=== PATIENT | female | born 1935 ===

== ENCOUNTER 2017-04-19 22:52 | Inpatient (IN) | payer MEDICARE ==
[2017-04-19 22:52] VITALS: BMI 25.6
--- NOTE | 2017-04-20 01:34 | C.PDOC ---
History Of Present Illness Patient presents to the ER after having a near syncopal episode [employer]. Patient states she was watching TV when she got dizzy, tried to get up, and felt like she almost passed out. Patient states she laid on the ground, did not fall, and remember the event. Patient notes she did not take her hypertension medications today. She is also complaining of some mild chest discomfort. Denies fever, chills, nausea, or vomiting. Time Seen by Provider: 04/20/17 01:34 Chief Complaint (Nursing): High Blood Pressure History Per: Patient History/Exam Limitations: no limitations Onset/Duration Of Symptoms: Hrs Current Symptoms Are (Timing): Still Present Associated Symptoms: Chest Pain, Dizziness. denies: Dyspnea, Blurred Vision, Focal Weakness, Headache Quality Of Symptoms: Asymptomatic Severity: Moderate Pain Scale Rating Of: 4 Exacerbating Factor(s): Pos: Recently Missed Doses Of Medication Recent travel outside of the [place]: No Additional History Per: Family Past Medical History Reviewed: Historical Data, Nursing Documentation, Vital Signs Vital Signs: Last Vital Signs Temp 97.8 F 04/19/17 22:56 Pulse 58 L 04/20/17 00:22 Resp 18 04/20/17 00:22 BP 184/78 H 04/20/17 00:22 Pulse Ox 97 04/20/17 01:54 - Medical History PMH: Anemia, Arthritis, HTN, Hypercholesterolemia Surgical History: CABG, Coronary Stent (X2) Family History: States: No Known Family Hx - Social History Hx Tobacco Use: No Hx Alcohol Use: No Hx Substance Use: No - Immunization History Hx Tetanus Toxoid Vaccination: No Hx Influenza Vaccination: Yes Hx Pneumococcal Vaccination: No Review Of Systems Constitutional: Negative for: Fever, Chills Cardiovascular: Positive for: Chest Pain (discomfort). Negative for: Palpitations Respiratory: Negative for: Cough, Shortness of Breath Gastrointestinal: Negative for: Nausea, Vomiting Genitourinary: Negative for: Dysuria Musculoskeletal: Negative for: Neck Pain Skin: Negative for: Rash Neurological: Positive for: Dizziness, Other (Near syncope) Psych: Negative for: Anxiety Physical Exam - Physical Exam Appears: Non-toxic Skin: Warm, Dry Head: Normacephalic Eye(s): bilateral: Normal Inspection Oral Mucosa: Moist Throat: No Erythema Neck: Supple Chest: Symmetrical, No Tenderness Cardiovascular: Rhythm Regular Respiratory: No Rales, Rhonchi (Scattered), No Wheezing Gastrointestinal/Abdominal: Soft, No Tenderness Back: Normal Inspection Extremity: No Pedal Edema Extremity: Bilateral: Atraumatic, Normal Color And Temperature Pulses: Left Dorsalis Pedis: Normal, Right Dorsalis Pedis: Normal Neurological/Psych: Oriented x3 Gait: Steady ED Course And Treatment - Laboratory Results Result Diagrams: 04/20/17 02:25 04/20/17 02:25 ECG: Interpreted By Me, Viewed By Me ECG Rhythm: Sinus Rhythm (66), Nonspecific Changes O2 Sat by Pulse Oximetry: 97 (room air) Pulse Ox Interpretation: Normal - Radiology CXR: Interpreted by Me, Viewed By Me Progress Note: CT head, EKG, blood work, CXR, and urinalysis ordered. Aspirin administered. Disposition Discussed With Dr.: Gaurang Lara Comment: accetped the pt on his service and took over the care at 3AM Doctor Will See Patient In The: Hospital Counseled Patient/Family Regarding: Studies Performed, Diagnosis - Disposition Referrals: Gaurang Lara MD [Primary Care Provider] - Disposition: HOSPITALIZED Disposition Time: 01:34 Condition: FAIR Forms: Anapsis (Upper Sorbian) - POA Present On Arrival: None - Clinical Impression Clinical Impression: Hypertension, Chest pain - Scribe Statement The provider has reviewed the documentation as recorded by the Scribfabricio Muir All medical record entries made by the Scribe were at my direction and personally dictated by me. I have reviewed the chart and agree that the record accurately reflects my personal performance of the history, physical exam, medical decision making, and the department course for this patient. I have also personally directed, reviewed, and agree with the discharge instructions and disposition. Decision To Admit - Pt Status Changed To: Hospital Disposition Of: Inpatient - Admit Certification Admit to Inpatient:: After my assessment, the patient will require hospitalization for at least two midnights. This is because of the severity of symptoms shown, intensity of services needed, and/or the medical risk in this patient being treated as an outpatient. - InPatient: Physician Admission Certification: I certify that this patient requires 2 or more midnights of care for the following reason:: After my assessment, the patient will require hospitalization for at least two midnights. This is because of the severity of symptoms shown, intensity of services needed, and/or the medical risk in this patient being treated as an outpatient. - . Bed Request Type: Telemetry Admitting Physician: Gaurang Lara Patient Diagnosis: Hypertension, Chest pain
[2017-04-20] MEDS ORDERED: Aspirin 325 mg EC Tablets PO STA (01:41)
[2017-04-20] MEDS ORDERED: Aspirin 325 mg EC Tablets PO ONE (02:21)
[2017-04-20 02:35] LABS: BASO % 0.5 % (0.0-2.0); EOS # 0.2 K/uL (0.0-0.7); EOS % 3.3 % (0.0-4.0); HEMOGLOBIN 10.2 g/dL (11.0-16.0); LYMPH # 1.1 K/uL (1.0-4.3); LYMPH % 19.7 % (20.0-40.0); MEAN CELL VOLUME 85.9 fL (81.0-99.0); MEAN CORPUSCULAR HEMOGLOBIN 28.5 pg (27.0-31.0); MEAN CORPUSCULAR HGB CONC 33.1 g/dL (33.0-37.0); MEAN PLATELET VOLUME 9.5 fL (7.2-11.7); MONO # 0.4 K/uL (0.0-0.8); MONO % 7.6 % (0.0-10.0); NEUT # 3.7 K/uL (1.8-7.0); NEUT % 68.9 % (50.0-75.0); RBC 3.59 Mil/uL (3.80-5.20); RED CELL DISTRIBUTION WIDTH 15.8 % (11.5-14.5); WHITE BLOOD COUNT 5.4 K/uL (4.8-10.8)
--- NOTE | 2017-04-20 02:35 | CT ---
EXAM: CT Head Without Intravenous Contrast CLINICAL HISTORY: 81 years old, female; Pain; Headache; Patient HX: 5-2-14 images sent already; Additional info: Near syncope. Dizziness TECHNIQUE: Axial computed tomography images of the head/brain without intravenous contrast. All CT scans at this facility use one or more dose reduction techniques, viz.: automated exposure control; ma/kV adjustment per patient size (including targeted exams where dose is matched to indication; i.e. head); or iterative reconstruction technique. Coronal and sagittal reformatted images were created and reviewed. COMPARISON: CT - HEAD W/O CONTRAST 2013-07-07 12:04 FINDINGS: Brain: Mild atrophy. No intracranial hemorrhage. No mass. Minimal decreased attenuation within periventricular white matter. No definite edema. Ventricles: No hydrocephalus. Bones/joints: No acute fracture. Soft tissues: Unremarkable. Vasculature: Atherosclerotic disease of intracranial arteries. Sinuses: Mild mucosal thickening/air fluid level of RIGHT sphenoid sinus. Scattered minimal mucosal thickening of ethmoid, LEFT sphenoid sinuses. Mastoid air cells: No mastoid effusion. Orbits: Unremarkable as visualized. IMPRESSION: 1. Nonspecific white matter changes. Acute infarction may be CT occult within first 24 hours. If a focal deficit persists, consider followup CT or MRI for further evaluation. 2. Sinus disease. 3. Incidental/non-acute findings are described above.
[2017-04-20 02:45] LABS: PROTHROMBIN TIME 11.1 SECONDS (9.7-12.2)
[2017-04-20 02:48] LABS: CALCIUM 8.5 mg/dl (8.6-10.4); GFR AFRICAN-AMERICAN > 60; GFR NON-AFRICAN AMERICAN > 60
[2017-04-20 03:00] LABS: B-TYPE NATRIURETIC PEPTIDE 116 pg/mL (0-900)
[2017-04-20 03:07] LABS: SQUAMOUS EPITHIAL 1 /hpf (0-5); URINE BACTERIA MOD (<OCC); URINE BILIRUBIN NEGATIVE (NEGATIVE); URINE BLOOD NEGATIVE (NEGATIVE); URINE CLARITY Clear (Clear); URINE COLOR Yellow (YELLOW); URINE GLUCOSE (UA) NORMAL (Normal); URINE LEUKOCYTE ESTERASE TRACE Leu/uL (Negative); URINE NITRATE NEGATIVE (NEGATIVE); URINE PROTEIN NEGATIVE (NEGATIVE); URINE UROBILINOGEN NORMAL mg/dL (0.2-1.0)
[2017-04-20 03:09] LABS: ALB/GLOB RATIO 1.2 (1.0-2.1); ALBUMIN 3.9 g/dL (3.5-5.0); ALT/SGPT 17 U/L (9-52); AST/SGOT 39 U/L (14-36); BLOOD UREA NITROGEN 13 mg/dL (7-17)
[2017-04-20] MEDS ORDERED: Home Med 1 UNIT (Alendronate [Fosamax] 70 MG) PO SCH ×2 (05:00→08:15)
--- NOTE | 2017-04-20 08:28 | RAD ---
PROCEDURE: CHEST RADIOGRAPH, 1 VIEW HISTORY: chest pain COMPARISON: 07/07/2013 FINDINGS: LUNGS: Clear. PLEURA: No pneumothorax or pleural fluid seen. CARDIOVASCULAR: Minimal cardiomegaly. No pulmonary venous congestion. Aortic atherosclerotic vascular disease OSSEOUS STRUCTURES: Thoracic spondylosis. Bilateral shoulder arthrosis VISUALIZED UPPER ABDOMEN: Left subdiaphragmatic 2 - gaseous crescents: Within stomach and large bowel - favored ; no history provided to suggest loculated free air here OTHER FINDINGS: None. IMPRESSION: No acute cardiopulmonary pathology. Cardiomegaly as before Left subdiaphragmatic 2 - gaseous crescents: Within stomach and large bowel - favored ; no history provided to suggest loculated free air here. Please correlate
[2017-04-20] MEDS ORDERED: Pantoprazole 40 mg EC Tab PO SCH (10:00)
[2017-04-20] MEDS: Enoxaparin 40 mg Syringe SC SCH (10:04)
[2017-04-20 11:16] LABS: CK-MB 0.44 ng/mL (0.0-3.38)
--- NOTE | 2017-04-20 11:36 | CP.PCM.PN ---
Subjective - Date & Time of Evaluation Date of Evaluation: 04/20/17 Time of Evaluation: 11:35 - Subjective Subjective: PT SEEN IN ED BED [address] Dayan VERMA DURING ROUNDS. PT IS ADMITTED AND CURRENTLY WAITING FOR A BED ON TELE FLOOR. DAUGHTER AT BEDSIDE. EVAL'D BY DR. VERMA. PLAN: WILL CONTINUE TELE MX. DR. MURRAY TO SEE PT FOR CARDIOLOGY. DR. Narinder GROVER CONSULTED FOR NEURO--REPAIR SPECIALIST NOTIFIED DR. GROVER. DVT PROPHYLAXIS ORDERED. PHY THERAPY EVAL FOR GAIT. CM TO EVAL THE PT FOR D/C PLANNING FURTHER ORDERS PER CONSULTS AND ATTENDING. NO FURTHER ORDERS. Objective - Vital Signs/Intake and Output Vital Signs (last 24 hours): Temp Pulse Resp BP Pulse Ox 97.8 F 61 18 180/86 H 99 04/19/17 22:56 04/20/17 10:00 04/20/17 10:00 04/20/17 10:03 04/20/17 10:00 - Medications Medications: Current Medications Aspirin (Aspirin Chewable) 81 mg PO DAILY [facility] Last Admin: 04/20/17 10:04 Dose: 81 mg Clopidogrel Bisulfate (Plavix) 75 mg PO DAILY [facility] Last Admin: 04/20/17 10:04 Dose: 75 mg Enalapril Maleate (Vasotec) 20 mg PO DAILY [facility] Last Admin: 04/20/17 10:03 Dose: 20 mg Enoxaparin Sodium (Lovenox) 40 mg SC DAILY [facility] Last Admin: 04/20/17 10:04 Dose: 40 mg Home Med (Alendronate [Fosamax]) 70 mg PO Q7D [facility] Pantoprazole Sodium (Protonix Ec Tab) 40 mg PO DAILY [facility] Last Admin: 04/20/17 10:04 Dose: 40 mg Rosuvastatin Calcium (Crestor) 5 mg PO HS [facility] - Labs Labs: 04/20/17 02:25 04/20/17 02:25 PT 11.1 SECONDS (9.7-12.2) 04/20/17 02:25 INR 1.0 04/20/17 02:25 APTT 28 SECONDS (21-34) 04/20/17 02:25
[2017-04-20 15:54] VITALS: RESP 20
--- NOTE | 2017-04-20 17:06 | CP.PCM.HP ---
Past Patient History - Infectious Disease Hx of Infectious Diseases: None - Past Medical History & Family History Past Medical History?: Yes - Past Social History Smoking Status: Never Smoked - CARDIAC Hx Hypercholesterolemia: Yes Hx Hypertension: Yes - PULMONARY Hx Respiratory Disorders: No - NEUROLOGICAL Hx Paralysis: No - HEENT Hx Cataracts: Yes Other/Comment: hx of cataract surgery both eyes - RENAL Hx Chronic Kidney Disease: No - ENDOCRINE/METABOLIC Hx Endocrine Disorders: No - HEMATOLOGICAL/ONCOLOGICAL Hx Anemia: Yes - INTEGUMENTARY Hx Dermatological Problems: No - MUSCULOSKELETAL/RHEUMATOLOGICAL Hx Arthritis: Yes - GASTROINTESTINAL Hx Gastrointestinal Disorders: No - GENITOURINARY/GYNECOLOGICAL Hx Genitourinary Disorders: No - PSYCHIATRIC Hx Substance Use: No - SURGICAL HISTORY Hx Coronary Artery Bypass Graft: Yes Hx Coronary Stent: Yes (X2) - ANESTHESIA Hx Anesthesia: Yes Hx Anesthesia Reactions: No Hx Malignant Hyperthermia: No Meds Allergies/Adverse Reactions: Allergies Allergy/AdvReac Type Severity Reaction Status Date / Time No Known Allergies Allergy Verified 04/19/17 23:01 Physical Exam - Constitutional Appears: Well - Head Exam Head Exam: ATRAUMATIC, NORMAL INSPECTION, NORMOCEPHALIC - Eye Exam Eye Exam: EOMI, Normal appearance, PERRL Pupil Exam: NORMAL ACCOMODATION, PERRL - ENT Exam ENT Exam: Mucous Membranes Moist, Normal Exam - Neck Exam Neck exam: Positive for: Normal Inspection - Respiratory Exam Respiratory Exam: Decreased Breath Sounds - Cardiovascular Exam Cardiovascular Exam: REGULAR RHYTHM, +S1, +S2 - GI/Abdominal Exam GI & Abdominal Exam: Diminished Bowel Sounds, Soft - Rectal Exam Rectal Exam: Deferred Results - Vital Signs Recent Vital Signs: Last Vital Signs Temp 97.9 F 04/20/17 15:53 Pulse 57 L 04/20/17 15:53 Resp 20 04/20/17 15:53 BP 160/70 H 04/20/17 15:53 Pulse Ox 99 04/20/17 15:53 - Labs Result Diagrams: 04/20/17 02:25 04/20/17 02:25 Labs: Laboratory Results - last 24 hr 04/20/17 04/20/17 04/20/17 02:25 02:25 02:25 WBC 5.4 RBC 3.59 L Hgb 10.2 L Hct 30.8 L MCV 85.9 D MCH 28.5 MCHC 33.1 RDW 15.8 H Plt Count 160 MPV 9.5 Neut % (Auto) 68.9 Lymph % (Auto) 19.7 L [place] % (Auto) 7.6 Eos % (Auto) 3.3 Baso % (Auto) 0.5 Neut # (Auto) 3.7 Lymph # (Auto) 1.1 [place] # (Auto) 0.4 Eos # (Auto) 0.2 Baso # (Auto) 0.0 PT 11.1 INR 1.0 APTT 28 Sodium 140 Potassium 4.3 Chloride 106 Carbon Dioxide 24 Anion Gap 14 BUN 13 Creatinine 0.8 Est GFR ( Amer) > 60 Est GFR (Non-Af Amer) > 60 Random Glucose 108 H Calcium 8.5 L Total Bilirubin 1.1 AST 39 H ALT 17 Alkaline Phosphatase 52 Total Creatine Kinase CK-MB (Mass) Troponin I < 0.0120 NT-Pro-B Natriuret Pep 116 Total Protein 7.3 Albumin 3.9 Globulin 3.4 Albumin/Globulin Ratio 1.2 Urine Color Urine Clarity Urine pH Ur Specific [place] Urine Protein Urine Glucose (UA) Urine Ketones Urine Blood Urine Nitrate Urine Bilirubin Urine Urobilinogen Ur Leukocyte Esterase Urine WBC (Auto) Urine RBC (Auto) Ur Squamous Epith Cells Urine Bacteria 04/20/17 04/20/17 02:54 10:38 WBC RBC Hgb Hct MCV MCH MCHC RDW Plt Count MPV Neut % (Auto) Lymph % (Auto) [place] % (Auto) Eos % (Auto) Baso % (Auto) Neut # (Auto) Lymph # (Auto) [place] # (Auto) Eos # (Auto) Baso # (Auto) PT INR APTT Sodium Potassium Chloride Carbon Dioxide Anion Gap BUN Creatinine Est GFR ( Amer) Est GFR (Non-Af Amer) Random Glucose Calcium Total Bilirubin AST ALT Alkaline Phosphatase Total Creatine Kinase 43 CK-MB (Mass) 0.44 Troponin I < 0.0120 NT-Pro-B Natriuret Pep Total Protein Albumin Globulin Albumin/Globulin Ratio Urine Color Yellow Urine Clarity Clear Urine pH 7.0 Ur Specific [place] 1.005 Urine Protein Negative Urine Glucose (UA) Normal Urine Ketones Negative Urine Blood Negative Urine Nitrate Negative Urine Bilirubin Negative Urine Urobilinogen Normal Ur Leukocyte Esterase Trace Urine WBC (Auto) 3 Urine RBC (Auto) 2 Ur Squamous Epith Cells 1 Urine Bacteria Mod H
--- NOTE | 2017-04-20 17:21 | CP.PCM.CON ---
History of Present Illness - History of Present Illness History of Present Illness: I was asked to see patient by DR Dayan Lara. Patient is a 81 year old female with PMH HTN, who presents with chest pain. Symptoms are progressive cnetrally located. She has dyspnea on exertion. The patient has had previous coronary intervention. Review of Systems - Constitutional Constitutional: absent: As Per HPI, Anorexia, Chills, Daytime Sleepiness, Excessive Sweating, Fatigue, Fever, Frequent Falls, Headache, Increased Appetite , Lethargy, Malaise, Night Sweats, Snoring, Sleep Apnea, Weight Gain, Weight Loss, Weakness, Other - EENT Eyes: absent: As Per HPI, Blind Spots, Blurred Vision, Change in Vision, Decreased Night Vision, Diplopia, Discharge, Dry Eye, Exophthalmos, Floaters, Irritation, Itchy Eyes, Loss of Peripheral Vision, Pain, Photophobia, Requires Corrective Lenses, Sees Flashes, Spots in Vision, Tunnel Vision, Other Visual Disturbances, Loss of Vision, Other Ears: absent: As Per HPI, Decreased Hearing, Ear Discharge, Ear Pain, Tinnitus, Abnormal Hearing, Disequilibrium, Dizziness, Other Nose/Mouth/Throat: absent: As Per HPI, Epistaxis, Nasal Congestion, Nasal Discharge, Nasal Obstruction, Nasal Trauma, Nose Pain, Post Nasal Drip, Sinus Pain, Sinus Pressure, Bleeding Gums, Change in Voice, Dental Pain, Dry Mouth, Dysphagia, Halitosis, Hoarsness, Lip Swelling, Mouth Lesions, Mouth Pain, Odynophagia, Sore Throat, Throat Swelling, Tongue Swelling, Facial Pain, Neck Pain, Neck Mass, Other - Cardiovascular Cardiovascular: Chest Pain - Respiratory Respiratory: absent: As Per HPI, Cough, Dyspnea, Hemoptysis, Dyspnea on Exertion , Wheezing, Snoring, Stridor, Pain on Inspiration, Chest Congestion, Excessive Mucous Production, Change in Mucous Color, Pain with Coughing, Other - Gastrointestinal Gastrointestinal: absent: As Per HPI, Abdominal Pain, Belching, Bloating, Change in Bowel Habits, Change in Stool Character, Coffee Ground Emesis, Constipation, Cramping, Diarrhea, Dyspepsia, Dysphagia, Early Satiety, Excessive Flatus, Fecal Incontinence, Heartburn, Hematemesis, Hematochezia, Loose Stools, Melena, Nausea, Odynophagia, Temesmus, Vomiting, Other - Genitourinary Genitourinary: absent: As Per HPI, Change in Urinary Stream, Difficulty Urinating, Dysuria, Flank Pain, Hematuria, Pyuria, Nocturia, Urinary Incontinence, Urinary Frequency, Urinary Hesitance, Urinary Urgency, Voiding Freq/Small Amts, Freq UTI, Hx Renal/Bladder Calculi, Hx /Renal Surgery, Bladder Distension, Other - Musculoskeletal Musculoskeletal: absent: As Per HPI, Abnormal Gait, Arthralgias, Atrophy, Back Pain, Deformity, Joint Swelling, Limited Range of Motion, Loss of Height, Muscle Cramps, Muscle Weakness, Myalgias, Neck Pain, Numbness, Radiating Pain into Limb, Stiffness, Tingling, Other - Integumentary Integumentary: absent: As Per HPI, Acne, Alopecia, Bleeding Lesions, Change in Hair, Change in Nails, Change in Pigmentation, Changing Lesions, Dry Skin, Erythema, Furuncle, Hirsutism, Lesions, New Lesions, Non-Healing Lesions, Photosensitivity, Pruritus, Rash, Skin Pain, Skin Ulcer, Sores, Striae, Swelling , Unusual Bruising, Wounds, Jaundice, Other - Neurological Neurological: absent: As Per HPI, Abnormal Gait, Abnormal Hearing, Abnormal Movements, Abnormal Speech, Behavioral Changes, Burning Sensations, Confusion, Convulsions, Disequilibrium, Dizziness, Numbness, Focal Weakness, Frequent Falls , Headaches, Lack of Coordination, Loss of Vision, Memory Loss, Paresthesias, Radicular Pain, Restless Legs, Sensory Deficit, Syncope, Tingling, Tremor, Vertigo, Weakness, Other Visual Disturbances, Other - Psychiatric Psychiatric: absent: As Per HPI, Abnormal Sleep Pattern, Anhedonia, Anxiety, Auditory Hallucinations, Behavioral Changes, Change in Appetite, Change in Libido, Confusion, Depression, Difficulty Concentrating, Hallucinations, Homicidal Ideation, Hopelessness, Irritability, Memory Loss, Mood Swings, Panic Attacks, Paranoia, Suicidal Ideation, Visual Hallucinations, Tactile Hallucinations, Other - Endocrine Endocrine: absent: As Per HPI, Change in Body Appearance, Change in Libido, Cold Intolorance, Deepening of Voice, Excessive Sweating, Fatigue, Flushing, Heat Intolorance, Increase in Ring/Shoe/Hat Size, Palpitations, Polydipsia, Polyphagia, Polyuria, Other - Hematologic/Lymphatic Hematologic: absent: As Per HPI, Easy Bleeding, Easy Bruising, Lymphadenopathy, Other Past Patient History - Infectious Disease Hx of Infectious Diseases: None - Past Medical History & Family History Past Medical History?: Yes - Past Social History Smoking Status: Never Smoked - CARDIAC Hx Hypercholesterolemia: Yes Hx Hypertension: Yes - PULMONARY Hx Respiratory Disorders: No - NEUROLOGICAL Hx Paralysis: No - HEENT Hx Cataracts: Yes Other/Comment: hx of cataract surgery both eyes - RENAL Hx Chronic Kidney Disease: No - ENDOCRINE/METABOLIC Hx Endocrine Disorders: No - HEMATOLOGICAL/ONCOLOGICAL Hx Anemia: Yes - INTEGUMENTARY Hx Dermatological Problems: No - MUSCULOSKELETAL/RHEUMATOLOGICAL Hx Arthritis: Yes - GASTROINTESTINAL Hx Gastrointestinal Disorders: No - GENITOURINARY/GYNECOLOGICAL Hx Genitourinary Disorders: No - PSYCHIATRIC Hx Substance Use: No - SURGICAL HISTORY Hx Coronary Artery Bypass Graft: Yes Hx Coronary Stent: Yes (X2) - ANESTHESIA Hx Anesthesia: Yes Hx Anesthesia Reactions: No Hx Malignant Hyperthermia: No Meds Allergies/Adverse Reactions: Allergies Allergy/AdvReac Type Severity Reaction Status Date / Time No Known Allergies Allergy Verified 04/19/17 23:01 - Medications Medications: Current Medications Aspirin (Aspirin Chewable) 81 mg PO DAILY [facility] Last Admin: 04/20/17 10:04 Dose: 81 mg Clopidogrel Bisulfate (Plavix) 75 mg PO DAILY [facility] Last Admin: 04/20/17 10:04 Dose: 75 mg Enalapril Maleate (Vasotec) 20 mg PO DAILY [facility] Last Admin: 04/20/17 10:03 Dose: 20 mg Enoxaparin Sodium (Lovenox) 40 mg SC DAILY [facility] Last Admin: 04/20/17 10:04 Dose: 40 mg Home Med (Alendronate [Fosamax]) 70 mg PO Q7D [facility] Pantoprazole Sodium (Protonix Ec Tab) 40 mg PO DAILY [facility] Last Admin: 04/20/17 10:04 Dose: 40 mg Rosuvastatin Calcium (Crestor) 5 mg PO [facility] Physical Exam - Constitutional Appears: Non-toxic - Head Exam Head Exam: NORMAL INSPECTION - Eye Exam Eye Exam: Normal appearance - ENT Exam ENT Exam: Mucous Membranes Moist - Neck Exam Neck exam: Positive for: Normal Inspection - Respiratory Exam Respiratory Exam: NORMAL BREATHING PATTERN - Cardiovascular Exam Cardiovascular Exam: REGULAR RHYTHM - GI/Abdominal Exam GI & Abdominal Exam: Normal Bowel Sounds - Rectal Exam Rectal Exam: Deferred - Extremities Exam Extremities exam: Positive for: normal inspection - Back Exam Back exam: NORMAL INSPECTION - Neurological Exam Neurological exam: Alert, Oriented x3 - Psychiatric Exam Psychiatric exam: Normal Affect - Skin Skin Exam: Normal Color Results - Vital Signs Recent Vital Signs: Last Vital Signs Temp 97.9 F 04/20/17 15:53 Pulse 57 L 04/20/17 15:53 Resp 20 04/20/17 15:53 BP 160/70 H 04/20/17 15:53 Pulse Ox 99 04/20/17 15:53 - Labs Result Diagrams: 04/21/17 06:30 04/21/17 06:30 Labs: Laboratory Results - last 24 hr 04/20/17 04/20/17 04/20/17 02:25 02:25 02:25 WBC 5.4 RBC 3.59 L Hgb 10.2 L Hct 30.8 L MCV 85.9 D MCH 28.5 MCHC 33.1 RDW 15.8 H Plt Count 160 MPV 9.5 Neut % (Auto) 68.9 Lymph % (Auto) 19.7 L [place] % (Auto) 7.6 Eos % (Auto) 3.3 Baso % (Auto) 0.5 Neut # (Auto) 3.7 Lymph # (Auto) 1.1 [place] # (Auto) 0.4 Eos # (Auto) 0.2 Baso # (Auto) 0.0 PT 11.1 INR 1.0 APTT 28 Sodium 140 Potassium 4.3 Chloride 106 Carbon Dioxide 24 Anion Gap 14 BUN 13 Creatinine 0.8 Est GFR ( Amer) > 60 Est GFR (Non-Af Amer) > 60 Random Glucose 108 H Calcium 8.5 L Total Bilirubin 1.1 AST 39 H ALT 17 Alkaline Phosphatase 52 Total Creatine Kinase CK-MB (Mass) Troponin I < 0.0120 NT-Pro-B Natriuret Pep 116 Total Protein 7.3 Albumin 3.9 Globulin 3.4 Albumin/Globulin Ratio 1.2 Urine Color Urine Clarity Urine pH Ur Specific [place] Urine Protein Urine Glucose (UA) Urine Ketones Urine Blood Urine Nitrate Urine Bilirubin Urine Urobilinogen Ur Leukocyte Esterase Urine WBC (Auto) Urine RBC (Auto) Ur Squamous Epith Cells Urine Bacteria 04/20/17 04/20/17 02:54 10:38 WBC RBC Hgb Hct MCV MCH MCHC RDW Plt Count MPV Neut % (Auto) Lymph % (Auto) [place] % (Auto) Eos % (Auto) Baso % (Auto) Neut # (Auto) Lymph # (Auto) [place] # (Auto) Eos # (Auto) Baso # (Auto) PT INR APTT Sodium Potassium Chloride Carbon Dioxide Anion Gap BUN Creatinine Est GFR ( Amer) Est GFR (Non-Af Amer) Random Glucose Calcium Total Bilirubin AST ALT Alkaline Phosphatase Total Creatine Kinase 43 CK-MB (Mass) 0.44 Troponin I < 0.0120 NT-Pro-B Natriuret Pep Total Protein Albumin Globulin Albumin/Globulin Ratio Urine Color Yellow Urine Clarity Clear Urine pH 7.0 Ur Specific [place] 1.005 Urine Protein Negative Urine Glucose (UA) Normal Urine Ketones Negative Urine Blood Negative Urine Nitrate Negative Urine Bilirubin Negative Urine Urobilinogen Normal Ur Leukocyte Esterase Trace Urine WBC (Auto) 3 Urine RBC (Auto) 2 Ur Squamous Epith Cells 1 Urine Bacteria Mod H - EKG Data EKG Interpreted by: Myself Assessment & Plan (1) CAD (coronary artery disease) Assessment and Plan: given previous symptoms, will schedule stress test Status: Acute (2) Hypertension Status: Acute
--- NOTE | 2017-04-20 17:21 | CP.PCM.CON ---
History of Present Illness - History of Present Illness History of Present Illness: patient seen/examined. history of CAD s/p PCI who presents with dyspnea on exertion, and chest pain. will schedule stress test for am. Past Patient History - Infectious Disease Hx of Infectious Diseases: None - Past Medical History & Family History Past Medical History?: Yes - Past Social History Smoking Status: Never Smoked - CARDIAC Hx Hypercholesterolemia: Yes Hx Hypertension: Yes - PULMONARY Hx Respiratory Disorders: No - NEUROLOGICAL Hx Paralysis: No - HEENT Hx Cataracts: Yes Other/Comment: hx of cataract surgery both eyes - RENAL Hx Chronic Kidney Disease: No - ENDOCRINE/METABOLIC Hx Endocrine Disorders: No - HEMATOLOGICAL/ONCOLOGICAL Hx Anemia: Yes - INTEGUMENTARY Hx Dermatological Problems: No - MUSCULOSKELETAL/RHEUMATOLOGICAL Hx Arthritis: Yes - GASTROINTESTINAL Hx Gastrointestinal Disorders: No - GENITOURINARY/GYNECOLOGICAL Hx Genitourinary Disorders: No - PSYCHIATRIC Hx Substance Use: No - SURGICAL HISTORY Hx Coronary Artery Bypass Graft: Yes Hx Coronary Stent: Yes (X2) - ANESTHESIA Hx Anesthesia: Yes Hx Anesthesia Reactions: No Hx Malignant Hyperthermia: No Meds Allergies/Adverse Reactions: Allergies Allergy/AdvReac Type Severity Reaction Status Date / Time No Known Allergies Allergy Verified 04/19/17 23:01 - Medications Medications: Current Medications Aspirin (Aspirin Chewable) 81 mg PO DAILY [facility] Last Admin: 04/20/17 10:04 Dose: 81 mg Clopidogrel Bisulfate (Plavix) 75 mg PO DAILY [facility] Last Admin: 04/20/17 10:04 Dose: 75 mg Enalapril Maleate (Vasotec) 20 mg PO DAILY [facility] Last Admin: 04/20/17 10:03 Dose: 20 mg Enoxaparin Sodium (Lovenox) 40 mg SC DAILY [facility] Last Admin: 04/20/17 10:04 Dose: 40 mg Home Med (Alendronate [Fosamax]) 70 mg PO Q7D [facility] Pantoprazole Sodium (Protonix Ec Tab) 40 mg PO DAILY [facility] Last Admin: 04/20/17 10:04 Dose: 40 mg Rosuvastatin Calcium (Crestor) 5 mg PO HS [facility] Results - Vital Signs Recent Vital Signs: Last Vital Signs Temp 97.9 F 04/20/17 15:53 Pulse 57 L 04/20/17 15:53 Resp 20 04/20/17 15:53 BP 160/70 H 04/20/17 15:53 Pulse Ox 99 04/20/17 15:53 - Labs Result Diagrams: 04/20/17 02:25 04/20/17 02:25 Labs: Laboratory Results - last 24 hr 04/20/17 04/20/17 04/20/17 02:25 02:25 02:25 WBC 5.4 RBC 3.59 L Hgb 10.2 L Hct 30.8 L MCV 85.9 D MCH 28.5 MCHC 33.1 RDW 15.8 H Plt Count 160 MPV 9.5 Neut % (Auto) 68.9 Lymph % (Auto) 19.7 L [place] % (Auto) 7.6 Eos % (Auto) 3.3 Baso % (Auto) 0.5 Neut # (Auto) 3.7 Lymph # (Auto) 1.1 [place] # (Auto) 0.4 Eos # (Auto) 0.2 Baso # (Auto) 0.0 PT 11.1 INR 1.0 APTT 28 Sodium 140 Potassium 4.3 Chloride 106 Carbon Dioxide 24 Anion Gap 14 BUN 13 Creatinine 0.8 Est GFR ( Amer) > 60 Est GFR (Non-Af Amer) > 60 Random Glucose 108 H Calcium 8.5 L Total Bilirubin 1.1 AST 39 H ALT 17 Alkaline Phosphatase 52 Total Creatine Kinase CK-MB (Mass) Troponin I < 0.0120 NT-Pro-B Natriuret Pep 116 Total Protein 7.3 Albumin 3.9 Globulin 3.4 Albumin/Globulin Ratio 1.2 Urine Color Urine Clarity Urine pH Ur Specific [place] Urine Protein Urine Glucose (UA) Urine Ketones Urine Blood Urine Nitrate Urine Bilirubin Urine Urobilinogen Ur Leukocyte Esterase Urine WBC (Auto) Urine RBC (Auto) Ur Squamous Epith Cells Urine Bacteria 04/20/17 04/20/17 02:54 10:38 WBC RBC Hgb Hct MCV MCH MCHC RDW Plt Count MPV Neut % (Auto) Lymph % (Auto) [place] % (Auto) Eos % (Auto) Baso % (Auto) Neut # (Auto) Lymph # (Auto) [place] # (Auto) Eos # (Auto) Baso # (Auto) PT INR APTT Sodium Potassium Chloride Carbon Dioxide Anion Gap BUN Creatinine Est GFR ( Amer) Est GFR (Non-Af Amer) Random Glucose Calcium Total Bilirubin AST ALT Alkaline Phosphatase Total Creatine Kinase 43 CK-MB (Mass) 0.44 Troponin I < 0.0120 NT-Pro-B Natriuret Pep Total Protein Albumin Globulin Albumin/Globulin Ratio Urine Color Yellow Urine Clarity Clear Urine pH 7.0 Ur Specific [place] 1.005 Urine Protein Negative Urine Glucose (UA) Normal Urine Ketones Negative Urine Blood Negative Urine Nitrate Negative Urine Bilirubin Negative Urine Urobilinogen Normal Ur Leukocyte Esterase Trace Urine WBC (Auto) 3 Urine RBC (Auto) 2 Ur Squamous Epith Cells 1 Urine Bacteria Mod H
[2017-04-20 20:12] LABS: CK-MB 0.36 ng/mL (0.0-3.38)
--- NOTE | 2017-04-20 22:49 | CON ---
DATE: HISTORY OF PRESENT ILLNESS: This is an 81-year-old female who was admitted with syncopal episode. At home, the patient was watching TV, felt dizzy, and almost passed out, did not lose consciousness. No tongue bite. Brought to hospital and found to have a very high blood pressure. In the ER, it was 184/78. Also, complaining of some chest discomfort and admitted with high blood pressure and syncopal episode. PAST MEDICAL HISTORY: As above. Anemia, arthritis, hypertension, high cholesterol. SURGICAL HISTORY: CABG, status post coronary stent. REVIEW OF SYSTEMS: A 10-point review of system was negative, except high blood pressure and syncopal episode. PHYSICAL EXAMINATION: HEENT: Normocephalic, atraumatic. NECK: Supple. NEURO: Alert, awake, oriented x3. No aphasia. Cranial nerves II through XII were tested, pupils reactive, EOM intact. Visual filed full. No facial asymmetry. Tongue midline. MOTOR: Moves all the extremities equally. Tone normal. Deep tendon reflexes 1+. Both plantars are downgoing. Sensory appears intact. Cerebellar and gait, deferred. LABORATORY DATA: WBC 5.4, hemoglobin 10.2, hematocrit 30.8, and platelet 160. IMPRESSION: Syncope, less likely seizures and CAT scan of the head was done which was reported negative. PLAN: Workup in progress. We will follow up. Gilberto Mcnair MD
[2017-04-21 06:54] LABS: HEMOGLOBIN 10.1 g/dL (11.0-16.0); MEAN CELL VOLUME 85.6 fL (81.0-99.0); MEAN CORPUSCULAR HEMOGLOBIN 28.1 pg (27.0-31.0); MEAN CORPUSCULAR HGB CONC 32.8 g/dL (33.0-37.0); MEAN PLATELET VOLUME 9.1 fL (7.2-11.7); RBC 3.58 Mil/uL (3.80-5.20); RED CELL DISTRIBUTION WIDTH 15.2 % (11.5-14.5); WHITE BLOOD COUNT 4.5 K/uL (4.8-10.8)
[2017-04-21 07:01] LABS: BLOOD UREA NITROGEN 12 mg/dL (7-17); CALCIUM 8.8 mg/dl (8.6-10.4); GFR AFRICAN-AMERICAN > 60; GFR NON-AFRICAN AMERICAN > 60
[2017-04-21] MEDS ORDERED: Aminophylline 25 mg/ml Inj ONE (08:10)
--- NOTE | 2017-04-21 08:28 | CP.PCM.PN ---
Subjective - Date & Time of Evaluation Date of Evaluation: 04/21/17 Time of Evaluation: 08:20 - Subjective Subjective: nuclear stress test completed. await nuclear images for further recommendations Objective - Vital Signs/Intake and Output Vital Signs (last 24 hours): Temp Pulse Resp BP Pulse Ox 97.3 F L 52 L 20 135/74 97 04/21/17 04:45 04/21/17 04:45 04/21/17 04:45 04/21/17 04:45 04/21/17 04:45 - Medications Medications: Current Medications Aspirin (Aspirin Chewable) 81 mg PO DAILY [facility] Last Admin: 04/20/17 10:04 Dose: 81 mg Clopidogrel Bisulfate (Plavix) 75 mg PO DAILY [facility] Last Admin: 04/20/17 10:04 Dose: 75 mg Enalapril Maleate (Vasotec) 20 mg PO DAILY [facility] Last Admin: 04/20/17 10:03 Dose: 20 mg Enoxaparin Sodium (Lovenox) 40 mg SC DAILY [facility] Last Admin: 04/20/17 10:04 Dose: 40 mg Famotidine (Pepcid) 20 mg PO BID [facility] Home Med (Alendronate [Fosamax]) 70 mg PO Q7D [facility] Rosuvastatin Calcium (Crestor) 5 mg PO HS [facility] Last Admin: 04/20/17 21:29 Dose: 5 mg - Labs Labs: 04/21/17 06:30 04/21/17 06:30 PT 11.1 SECONDS (9.7-12.2) 04/20/17 02:25 INR 1.0 04/20/17 02:25 APTT 28 SECONDS (21-34) 04/20/17 02:25
[2017-04-21] MEDS: Enoxaparin 40 mg Syringe SC SCH (10:45)
--- NOTE | 2017-04-21 11:35 | VASCLAB ---
PROCEDURE: HISTORY: near syncope COMPARISON: Last exam 07/10/2013, normal. TECHNIQUE: Grayscale and duplex Doppler evaluation of the cervical carotid and vertebral arteries were performed. The common carotid, carotid bifurcations and cervical Internal Carotid Artery (ICA) and proximal External Carotid Artery (ECA) were evaluated. The vertebral arteries were evaluated for gross patency and flow direction. Report prepared by MERRICK Avilez FINDINGS: RIGHT CAROTID ARTERIES: 1. Common Carotid Artery: No significant focal plaque formation of the right common carotid artery. Maximum Peak Systolic velocity: 62 cm/sec: End-diastolic velocity 18 cm/sec. 2. Carotid Bifurcation: plaque formation. Maximum Peak Systolic velocity: 61 cm/sec: End-diastolic velocity 15 cm/sec. 3. Internal Carotid Artery: Plaque description: 3.1. Proximal Segment: Peak systolic velocity 53 cm/sec: End-diastolic velocity 13 cm/sec - % stenosis 0-15% 3.2. Middle Segment: Peak systolic velocity 83 cm/sec: End-diastolic velocity 22 cm/sec - % stenosis 0-15% 3.3. Distal Segment: Peak systolic velocity 72 cm/sec: End-diastolic velocity 19 cm/sec - % stenosis 0-15% 4. External Carotid Artery: No significant focal plaque formation. Peak systolic velocity 85 cm/sec 5. ICA/CCA Ratio: 1.3 LEFT CAROTID ARTERIES: 1. Common Carotid Artery: No significant focal plaque formation of the left common carotid artery. Maximum Peak Systolic velocity: 62 cm/sec: End-diastolic velocity 13 cm/sec. 2. Carotid Bifurcation: plaque formation. Maximum Peak Systolic velocity: 49 cm/sec: End-diastolic velocity 14 cm/sec. 3. Internal Carotid Artery: Plaque description: 3.1. Proximal Segment: Peak systolic velocity 64 cm/sec: End-diastolic velocity 23 cm/sec - % stenosis 0-15% 3.2. Middle Segment: Peak systolic velocity 47 cm/sec: End-diastolic velocity 14 cm/sec - % stenosis 0-15% 3.3. Distal Segment: Peak systolic velocity 76 cm/sec: End-diastolic velocity 18 cm/sec - % stenosis 0-15% 4. External Carotid Artery: No significant focal plaque formation. Peak systolic velocity 93 cm/sec 5. ICA/CCA Ratio: 1.2 VERTEBRAL ARTERIES: 1. Right Vertebral Artery: The right vertebral artery flow direction is antegrade. 2. Left Vertebral Artery: The left vertebral artery flow direction is antegrade. OTHER FINDINGS: 1. Right Brachial Blood pressure: 160 mmHg. 2. Left Brachial Blood pressure: 160 mmHg. IMPRESSION: RIGHT: Duplex scan does not suggest hemodynamically significant stenosis of the right extracranial carotid arteries. LEFT: Duplex scan does not suggest hemodynamically significant stenosis of the left extracranial carotid arteries.
--- NOTE | 2017-04-21 12:28 | CARD ---
APPROVED REPORT EKG Measurement Heart [id number] <Conclusion> Normal sinus rhythm Nonspecific ST abnormality Abnormal ECG
--- NOTE | 2017-04-21 15:20 | CARD ---
APPROVED REPORT Protocol: LEXISCAN Test Type: LEXISCAN STRESS Test Indications: ANGINA Target HR: 139 bpm Resting ECG: normal Resting Heart Rate: 64 bpm Resting Blood Pressure: 132/80mmHg submaximum (85%): 118 bpm TEST SUMMARY [id number].02:[id number]/80.0. INFUSIONDOSE 100:300.00.01.072/.0. [id number]/80.0. PROCEDURE Pharmacologic stress testing was performed using 0.4mg per 5ml of regadenoson given intravenously over 7-10 seconds. Reversal agent aminophyline 125 mg, given intravenously for Headache. POST EXERCISE Reason for Termination: Protocol Completed Target HR: No Max HR: 72 bpm 71% of Maximum Predicted HR: 139 bpm Exercise duration: 00:30 min:sec, 0 Stage Exercise capacity: 1.0METs Max Blood Pressure: 132/80mmHg Blood Pressure response to exercise: normal resting BP - appropriate response Heart Rate response to exercise: appropriate Chest Pain: No, none Angina index: 0 Arrhythmia: No, none ST Change: No, none Deviation: 0 mm INTERPRETATION Stress EKG Conclusion: AWAIT NUCLEAR IMAGES EXAM: Myocardial Perfusion STRESS/REST Imaging Protocol The imaging protocol used to acquire images was Stress Tc-99m/rest Tc-99m 1 day Stress Spect myocardial perfusion imaging was performed in supine position 40 minutes following the injection of 13.2 mCi of Tc-99 Myoview. Gated Rest Spect was performed 41 minutes after intravenous 32.4 mCi Tc-99 Myoview injection. The images were gated to evaluate regional wall motion and calculate ventricular ejection fraction.Images were reconstructed using backfilter projection method in short horizontal and verticle long axis. Spect slices were generated. RESTING DATA EDV47.69mrSC6.90L/min ESV7.00mlMyocardial Mass90.00g Av. Heart Rate73.00bpm EF85.00% STRESS DATA EDV54.00lmNG7.60L/min ESV12.00mlMyocardial Mass95.00g EF78.00% Regional WT score at stress:3.00 Regional WM score at stress:0.00 Summed WT score at stress:13.00 Av. Heart Rate64.00bpmSummed WM score at stress:0.00 LV Perf. Quant 17 Seg. SSS3.00 17 Seg. SRS0.00 17 Seg. SDS3.00 Stress Defect Extent (% LAD)0.00Rest Defect Extent (% LAD)0.00Rev. Defect Extent (% LAD)0.00 Stress Defect Extent (% LCX)18.80Rest Defect Extent (% LCX)0.00Rev. Defect Extent (% LCX)8.80 Stress Defect Extent (% RCA)0.00Rest Defect Extent (% RCA)0.00Rev. Defect Extent (% RCA)0.00 Stress Defect Extent (% EDISON)4.30Rest Defect Extent (% EDISON)0.00Rev. Defect Extent (% EDISON)2.60 Other Information Quality:Excellent IMPRESSION Normal Myocardial Perfusion exercise stress study Global LV Function: Normal Stress Test Summary: Nondiagnostic LV Perfusion Summary: Normal Left Ventricle LV Size/Shape: The left ventricle is normal size. LV Thickness: There is normal left ventricular wall thickness. LV Function:Left ventricle systolic function is normal. The Ejection Fraction is 55-60%. Regional Wall Motion:No regional wall motion abnormalities noted. Metabolism/Perfusion There are no perfusion/metabolism defects. Conclusion 1. The stress and resting images show normal perfusion.
--- NOTE | 2017-04-21 18:40 | CP.PCM.PN ---
Subjective - Date & Time of Evaluation Date of Evaluation: 04/21/17 Time of Evaluation: 15:20 - Subjective Subjective: clinically same Objective - Vital Signs/Intake and Output Vital Signs (last 24 hours): Temp Pulse Resp BP Pulse Ox 98.0 F 74 20 119/72 98 04/21/17 15:20 04/21/17 16:18 04/21/17 15:20 04/21/17 15:20 04/21/17 15:20 - Medications Medications: Current Medications Aspirin (Aspirin Chewable) 81 mg PO DAILY [facility] Last Admin: 04/21/17 10:45 Dose: 81 mg Clopidogrel Bisulfate (Plavix) 75 mg PO DAILY [facility] Last Admin: 04/21/17 10:45 Dose: 75 mg Enalapril Maleate (Vasotec) 20 mg PO DAILY [facility] Last Admin: 04/21/17 10:45 Dose: 20 mg Enoxaparin Sodium (Lovenox) 40 mg SC DAILY [facility] Last Admin: 04/21/17 10:45 Dose: 40 mg Famotidine (Pepcid) 20 mg PO BID [facility] Last Admin: 04/21/17 17:23 Dose: 20 mg Home Med (Alendronate [Fosamax]) 70 mg PO Q7D [facility] Rosuvastatin Calcium (Crestor) 5 mg PO HS [facility] Last Admin: 04/20/17 21:29 Dose: 5 mg - Labs Labs: 04/21/17 06:30 04/21/17 06:30 PT 11.1 SECONDS (9.7-12.2) 04/20/17 02:25 INR 1.0 04/20/17 02:25 APTT 28 SECONDS (21-34) 04/20/17 02:25 - Constitutional Appears: Well - Head Exam Head Exam: ATRAUMATIC, NORMAL INSPECTION, NORMOCEPHALIC - Eye Exam Eye Exam: EOMI, Normal appearance, PERRL Pupil Exam: NORMAL ACCOMODATION, PERRL - ENT Exam ENT Exam: Mucous Membranes Moist, Normal Exam - Neck Exam Neck Exam: Full ROM, Normal Inspection. absent: Lymphadenopathy - Respiratory Exam Respiratory Exam: Decreased Breath Sounds - Cardiovascular Exam Cardiovascular Exam: REGULAR RHYTHM, +S1, +S2 - GI/Abdominal Exam GI & Abdominal Exam: Soft, Diminished Bowel Sounds - Rectal Exam Rectal Exam: Deferred
[2017-04-22] MEDS: Enoxaparin 40 mg Syringe SC SCH (10:12)
--- NOTE | 2017-04-22 10:14 | CP.PCM.PN ---
Subjective - Date & Time of Evaluation Date of Evaluation: 04/22/17 Time of Evaluation: 10:00 - Subjective Subjective: stress reveals no ischemia. normal left ventricular function Objective - Vital Signs/Intake and Output Vital Signs (last 24 hours): Temp Pulse Resp BP Pulse Ox 98.1 F 69 20 119/75 97 04/22/17 09:07 04/22/17 10:11 04/22/17 09:07 04/22/17 10:12 04/22/17 09:07 Intake and Output: 04/22/17 04/22/17 06:59 18:59 Intake Total 240 Balance 240 - Medications Medications: Current Medications Aspirin (Aspirin Chewable) 81 mg PO DAILY [facility] Last Admin: 04/22/17 10:12 Dose: 81 mg Clopidogrel Bisulfate (Plavix) 75 mg PO DAILY [facility] Last Admin: 04/22/17 10:12 Dose: 75 mg Enalapril Maleate (Vasotec) 20 mg PO DAILY [facility] Last Admin: 04/22/17 10:12 Dose: 20 mg Enoxaparin Sodium (Lovenox) 40 mg SC DAILY [facility] Last Admin: 04/22/17 10:12 Dose: 40 mg Famotidine (Pepcid) 20 mg PO BID [facility] Last Admin: 04/22/17 10:12 Dose: 20 mg Home Med (Alendronate [Fosamax]) 70 mg PO Q7D [facility] Rosuvastatin Calcium (Crestor) 5 mg PO HS [facility] Last Admin: 04/21/17 21:31 Dose: 5 mg - Labs Labs: 04/21/17 06:30 04/21/17 06:30 PT 11.1 SECONDS (9.7-12.2) 04/20/17 02:25 INR 1.0 04/20/17 02:25 APTT 28 SECONDS (21-34) 04/20/17 02:25
[2017-04-23 08:48] VITALS: TEMP 97.2; O2SAT 98
[2017-04-23 10:11] VITALS: BP 115/65
[2017-04-23] MEDS: Enoxaparin 40 mg Syringe SC SCH (10:11)
--- NOTE | 2017-04-23 12:40 | CP.PCM.PN ---
Subjective - Date & Time of Evaluation Date of Evaluation: 04/23/17 Time of Evaluation: 12:25 - Subjective Subjective: [employer] NOTES Patient seen today , awake,alert ox3, denies nay chest pain, sob, dizziness s/p stress test- Normal EF, no ischemia Objective - Vital Signs/Intake and Output Vital Signs (last 24 hours): Temp Pulse Resp BP Pulse Ox 97.2 F L 55 L 20 115/65 98 04/23/17 08:47 04/23/17 10:10 04/23/17 08:47 04/23/17 10:11 04/23/17 08:47 - Medications Medications: Current Medications Acetaminophen (Tylenol 325mg Tab) 650 mg PO Q6 PRN PRN Reason: Pain, moderate (4-7) Last Admin: 04/23/17 10:51 Dose: 650 mg Aspirin (Aspirin Chewable) 81 mg PO DAILY [facility] Last Admin: 04/23/17 10:11 Dose: 81 mg Clopidogrel Bisulfate (Plavix) 75 mg PO DAILY [facility] Last Admin: 04/23/17 10:11 Dose: 75 mg Enalapril Maleate (Vasotec) 20 mg PO DAILY [facility] Last Admin: 04/23/17 10:11 Dose: 20 mg Enoxaparin Sodium (Lovenox) 40 mg SC DAILY [facility] Last Admin: 04/23/17 10:11 Dose: 40 mg Famotidine (Pepcid) 20 mg PO BID [facility] Last Admin: 04/23/17 10:11 Dose: 20 mg Rosuvastatin Calcium (Crestor) 5 mg PO HS [facility] Last Admin: 04/22/17 21:10 Dose: 5 mg - Labs Labs: 04/21/17 06:30 04/21/17 06:30 PT 11.1 SECONDS (9.7-12.2) 04/20/17 02:25 INR 1.0 04/20/17 02:25 APTT 28 SECONDS (21-34) 04/20/17 02:25 Assessment and Plan - Assessment and Plan (Free Text) Assessment: A/P 81 yr old male with pmhx of HTN, Hypercholesterolemia admitted with chest pain and near syncope troponin x 3 negative s/p stress test - no ischemia. normal left ventricular function D/W with Dr. Dayan nicole, stable for discharge home today and f/u with Dr. J nicole office on Wednesday Discharge plan discussed with patient and daughter at bedside , who understands and agrees with plan
[2017-04-23 13:36] VITALS: PULSE 61
== END 2017-04-23 13:18 | disposition home or self-care (01) | DRG 312 ==
LOC: SUPCPDRO 22:52 → C.ER 22:52 → C.9E 04-20 03:01 → C.6T 04-20 14:03
PROVIDERS: ADMIT Internal Medicine Nephrology; ATTEND Internal Medicine Nephrology
DX: R55 Syncope and collapse (principal); Z95.1 Presence of aortocoronary bypass graft; E78.00 Pure hypercholesterolemia, unspecified; I10 Essential (primary) hypertension; R07.89 Other chest pain; I25.10 Atherosclerotic heart disease of native coronary artery without angina pectoris; Z91.14 Patient's other noncompliance with medication regimen; Z95.5 Presence of coronary angioplasty implant and graft

== ENCOUNTER 2018-06-23 08:26 | Outpatient (CLI) | payer MEDICARE, OTHER | END 2018-06-23 08:27 | disposition home or self-care (01) | LOC: C.USIC 08:27 | DX: R42 Dizziness and giddiness (principal) ==